=== PATIENT | female | born 1955 | race Caucasian/White ===

== ENCOUNTER 2023-11-24 05:45 | Day surgery (SDC) | payer BC, MEDICARE ==
[2023-11-24] MEDS ORDERED: Dextrose 5%-0.45% NaCl 1,000 ML IV SCH (06:00)
[2023-11-24] MEDS ORDERED: fentaNYL 100 MCG/2 ML SDV ONE (06:09)
[2023-11-24] MEDS ORDERED: Midazolam 1 MG/ML 2 ML SDV ONE (06:09)
[2023-11-24] MEDS ORDERED: fentaNYL 100 MCG/2 ML SDV IV ONE ×2 (07:01→07:02)
[2023-11-24] MEDS ORDERED: Midazolam 1 MG/ML 2 ML SDV IV ONE ×6 (07:02→07:11)
== END 2023-11-24 08:35 | disposition home or self-care (01) ==
LOC: DL.ENDO 05:45
PROVIDERS: ATTEND Internal Medicine Gastroenterology
DX: Z12.11 Encounter for screening for malignant neoplasm of colon (principal); K63.5 Polyp of colon; K57.30 Diverticulosis of large intestine without perforation or abscess without bleeding; E78.5 Hyperlipidemia, unspecified; E66.09 Other obesity due to excess calories; Z68.32 Body mass index [BMI] 32.0-32.9, adult; T14.8XXA Other injury of unspecified body region, initial encounter; Z79.899 Other long term (current) drug therapy
CPT/HCPCS: 88305; J2250; J3010; J7042